=== PATIENT | male | born 1955 | race Caucasian/White ===

== ENCOUNTER → 2018-07-31 | Outpatient (CLI) | payer MEDICARE ==
[~2018-07-31] MED LIST: REGADENOSON 0.4 MG/5 ML DISP.SYRIN. IV ONE
--- NOTE | 2018-08-01 08:08 | PCVCIMAG ---
APPROVED REPORT Study performed: 07/31/2018 08:25:16 EXAM: Comprehensive 2D, Doppler, and color-flow Echocardiogram Patient Location: Echo lab Status: routine BSA: 2.29 HR: 81 bpmBP: 120/80 mmHg Rhythm: NSR Other Information Study Quality: Technically Difficult Risk Factors: Cardiac Risk Factors: HTN, Hyperlipidemia, Diabetes (insulin), Smoking Indications Diabetes Hypertension/HDD Hyperlipidemia, GOVIND, Tobacco, Elevated calcium score 2D Dimensions IVSd: 13.62 (7-11mm)LVOT Diam: 21.81 (18-24mm) LVDd: 39.56 mm PWd: 9.15 (7-11mm)Ascending Ao: 33.81 (22-36mm) LVDs: 35.21 (25-40mm) Left Atrium: 35.73 (27-40mm) Aortic Root: 27.64 mm LV Single Plane 4CH: 51.92 % Volumes Left Atrial Volume (Systole) LA ESV Index: 18.00 mL/m2 Aortic Valve AoV Peak Abel.: 1.28 m/s AO Peak Gr.: 6.59 mmHgLVOT Max P.63 mmHg LVOT Max V: 0.81 m/s [place] Vmax: 2.36 cm2 AI Vmax: 2.09 m/s AI [place]: 1.65 m/s2 AI PHT: 368.33 ms Mitral Valve E/A Ratio: 0.9 MV Decel. Time: 238.18 ms MV E Max Abel.: 0.55 m/s MV A Abel.: 0.61 m/s TDI E/Lateral E': 11.00E/Medial E': 6.88 Medial E' Abel.: 0.08 m/s Lateral E' Abel.: 0.05 m/s Pulmonary Valve PV Peak Gr.: 1.66 mmHg Pulmonary Vein P Vein S: 0.51 m/sP Vein A: 0.29 m/s P Vein D: 0.25 m/sP Vein A Dur.: 96.9 msec P Vein S/D Ratio: 2.04 Tricuspid Valve TR Peak Abel.: 2.06 m/s TR Peak Gr.: 16.93 mmHg Left Ventricle The left ventricle is normal size. Regional wall motion is not well visualized but grossly normal. There is normal left ventricular wall thickness. Left ventricular systolic function is lower limits of normal. LVEF is 50-55%. The left ventricular diastolic function is normal. Right Ventricle The right ventricle is normal size. The right ventricular systolic function is normal. Atria The left atrium size is normal. The right atrium size is normal. Aortic Valve The aortic valve is mildly calcified. Trace aortic regurgitation. There is no aortic valvular stenosis. Mitral Valve The mitral valve is normal in structure. There is no mitral valve regurgitation noted. No evidence of mitral valve stenosis. Tricuspid Valve The tricuspid valve is normal in structure. Trace tricuspid regurgitation. Pulmonary artery pressure is 33mmHg. Pulmonic Valve The pulmonary valve is normal in structure. There is no pulmonic valvular regurgitation. Great Vessels The aortic root is normal in size. IVC is normal in size and collapses >50% with inspiration. Pericardium There is no pericardial effusion. <Conclusion> Left ventricular systolic function is lower limits of normal. LVEF is 50-55%. The aortic valve is mildly calcified. Trace aortic regurgitation, no stenosis. The mitral valve is normal in structure. No mitral valve regurgitation Trace tricuspid regurgitation. Pulmonary artery pressure of 33 mmHg. There is no pericardial effusion.
--- NOTE | 2018-08-01 09:02 | PCVCIMAG ---
APPROVED REPORT Imaging Protocol: Rest Tc-99m/Stress Tc-99m 1 day Study performed: 07/31/2018 09:29:17 Indication: High Ca Score (4944), Dyspnea Patient Location: Out-Patient Stress Nurse: Mitra Tyson RN MD Tech:Xenia Mora [facility] Ht: 6 ft 2 in Wt: 220 lbs BSA: 2.26 m2 HR: 83 bpm BP: 150/85 mmHg BMI: 28.2 Rhythm: Sinus Rhythm, T wave Abn Medical History Medical History: HTN, Hyperlipidemia, Diabetic Insulin, CAD, GOVIND, Former Smoker Medications: ASA, Atorvastatin, Gabapentin, Amaryl, Insulin, Lisinopril Allergies: Morphine Cardiac Risk Factors: Age Pretest Chest Pain Characteristics: No chest pain Exercise History: Physically active Resting Data Rest SPECT myocardial perfusion imaging was performed in supine position 45 minutes following the intravenous injection of 10.6 mCi of Tc-99m Sestamibi. Time of rest injection: 914 Date: 07/31/2018 Administration Route: IV Administration Site: Right AC Pharmacologic Stress Pharmacologic stress test was performed by injecting Regadenoson 0.4 mg IV push over 10-15 seconds immediately followed by the intravenous injection of 34.6 mCi of Tc-99m Sestamibi. Time of stress injection: 0 Date: 07/31/2018 Administration Route: IV Administration Site: Right AC Gated Stress SPECT was performed 45 minutes after stress injection. The images were gated to evaluate regional wall motion and calculate left ventricular ejection fraction. Stress Test Details Stress Test: Pharmacologic stress testing performed using 0.4 mg of regadenoson per 5 mL given IV over 10 seconds. Reason for pharmacologic stress test: Knee issues. HRMax Heart Rate (APMHR): 158 bpm Resting HR: 83 bpmTarget HR (85% APMHR): 134 bpm Max HR Achieved: 99 bpm % of APMHR: 62 Recovery HR: 95 bpm BP Resting BP: 150/85 mmHg Max BP: 156/79 mmHg Recovery BP: 134/88 mmHg ECG Resting ECG: Sinus rhythm with nonspecific ST and T wave abnormality Stress ECG: Sinus Rhythm, nonspecific ST and T wave abnormality ST Change: None Maximum ST Deviation: 0 mm Arrhythmia: None Recovery ECG: Sinus Rhythm, nonspecific ST and T wave abnormality Recovery ST Change: Sinus rhythm nonspecific ST and T wave abnormality Recovery ST Deviation: 0 mm Recovery Arrhythmia: None Clinical Reason for Termination: Completed protocol Stress Symptoms: Chest pain Exercise duration: 0 min 55 sec Symptoms resolved with caffeine. Stress ECG Conclusion ECG: Non-ischemic Clinical: Non-ischemic Study Quality Study: Good Study Data Post stress, the left ventricular ejection was 52%.. SSS: 5 SRS: 8 SDS: 2 TID = 1.15. Perfusion Medium sized area of moderate reversible ischemia involving the mid/basal inferior left ventricle consistent with a right coronary artery distribution. Wall Motion Normal left ventricular size and function with no regional wall motion abnormalities. Nuclear Conclusion Medium sized area of moderate reversible ischemia involving the mid/basal inferior left ventricle consistent with a right coronary artery distribution. Normal left ventricular size and function with no regional wall motion abnormalities. Post stress, the left ventricular ejection was 52%. No prior study available for comparison. Interpreted by: Yonathan Jacobson MD Electronically Approved: 07/31/2018 21:26:30 <Conclusion> ECG: Non-ischemic Clinical: Non-ischemic
== END | disposition home or self-care (01) ==
LOC: PCVCIMAG 08:30
PROVIDERS: ATTEND Internal Medicine
DX: I11.0 Hypertensive heart disease with heart failure (principal); E11.9 Type 2 diabetes mellitus without complications; E78.5 Hyperlipidemia, unspecified; G47.33 Obstructive sleep apnea (adult) (pediatric); R93.1 Abnormal findings on diagnostic imaging of heart and coronary circulation; R06.09 Other forms of dyspnea; I25.10 Atherosclerotic heart disease of native coronary artery without angina pectoris; I50.9 Heart failure, unspecified; Z87.891 Personal history of nicotine dependence; Z79.4 Long term (current) use of insulin
CPT/HCPCS: 78452; 93017; 93306; A9500; J2785

== ENCOUNTER → 2018-08-18 | Outpatient (CLI) | payer MEDICARE | END | disposition home or self-care (01) | LOC: PCVCCLINIC 14:33 | PROVIDERS: ATTEND Internal Medicine | DX: I25.10 Atherosclerotic heart disease of native coronary artery without angina pectoris (principal); R93.1 Abnormal findings on diagnostic imaging of heart and coronary circulation; I10 Essential (primary) hypertension; E78.5 Hyperlipidemia, unspecified; E11.9 Type 2 diabetes mellitus without complications; G47.33 Obstructive sleep apnea (adult) (pediatric); F17.201 Nicotine dependence, unspecified, in remission; Z79.4 Long term (current) use of insulin; Z88.8 Allergy status to other drugs, medicaments and biological substances; Z79.82 Long term (current) use of aspirin; Z79.899 Other long term (current) drug therapy | CPT/HCPCS: 36415; 93005; G0463 ==

== ENCOUNTER → 2018-10-26 | Outpatient (CLI) | payer MEDICARE | END | disposition home or self-care (01) | LOC: PCVCCLINIC 13:36 | PROVIDERS: ATTEND Internal Medicine | DX: I25.10 Atherosclerotic heart disease of native coronary artery without angina pectoris (principal); I10 Essential (primary) hypertension; E78.5 Hyperlipidemia, unspecified; E11.9 Type 2 diabetes mellitus without complications; G47.33 Obstructive sleep apnea (adult) (pediatric); F17.201 Nicotine dependence, unspecified, in remission; Z95.1 Presence of aortocoronary bypass graft; Z79.4 Long term (current) use of insulin | CPT/HCPCS: 93005; G0463 ==

== ENCOUNTER → 2019-02-12 | Outpatient (CLI) | payer MEDICARE | END | disposition home or self-care (01) | LOC: PCVCCLINIC 14:00 | PROVIDERS: ATTEND Internal Medicine | DX: I25.10 Atherosclerotic heart disease of native coronary artery without angina pectoris (principal); I10 Essential (primary) hypertension; E78.5 Hyperlipidemia, unspecified; E11.9 Type 2 diabetes mellitus without complications; G47.33 Obstructive sleep apnea (adult) (pediatric); F17.201 Nicotine dependence, unspecified, in remission; Z95.1 Presence of aortocoronary bypass graft; Z79.4 Long term (current) use of insulin | CPT/HCPCS: 36415; 80061; 93005; G0463 ==